=== PATIENT | male | born 1950 | race Caucasian/White ===

== ENCOUNTER → 2016-08-07 | Outpatient (CLI) | payer OTHER ==
[~2016-08-07] MED LIST: ACET500T76 PO; AMLO5TAB2 PO; ASPI-496 PO; ASPI-515 PO; ASPI325T4 PO; ATOR10TA PO; CHOL200024 PO; HYDR-882 PO; IBUP400T PO; LEVO25TA4 PO
== END | disposition home or self-care (01) ==
LOC: STAR 09:40
PROVIDERS: ATTEND Otolaryngology
DX: Z01.818 Encounter for other preprocedural examination (principal); J31.2 Chronic pharyngitis; C02.4 Malignant neoplasm of lingual tonsil
CPT/HCPCS: 93005

== ENCOUNTER 2016-08-14 09:30 | Day surgery (SDC) | payer OTHER ==
[~2016-08-14] VITALS: Ht 167.6 cm; Wt 105.5 kg
[~2016-08-14 09:30] MED LIST changes: +EPINEPHRINE TOPICAL SOLN 1 MG/ML, 30ML ONE; +FLUORESCEIN OPHTHALMIC 1 MG STRIP ONE; +OXYMETAZOLINE NASAL SPRAY 0.05%, 15ML ONE
[2016-08-14 10:06] VITALS: BP 136/74
[2016-08-14] MEDS ORDERED: FENTANYL PF 100 MCG/2ML ONE ×2 (10:48→11:55)
[2016-08-14] MEDS ORDERED: BALANCED SALT OPHTH IRRIG SOLN 18ML ONE (10:52)
[2016-08-14] MEDS ORDERED: OXYcodone 5 MG/5 ML ORAL.SOL UDC ONE (11:56)
[2016-08-14] MEDS ORDERED: OXYcodone 5 MG/5 ML ORAL.SOL UDC PO PRN (12:00)
[2016-08-14] MEDS ORDERED: ONDANSETRON 2MG/ML, 2ML IVPush PRN (12:00)
[2016-08-14] MEDS ORDERED: MEPERIDINE/PF 25MG/0.5ML IVPush PRN (12:00)
[2016-08-14] MEDS ORDERED: hydrALAzine 20 MG/ML, 1ML IV PRN (12:00)
[2016-08-14] MEDS ORDERED: MIDAZOLAM 1 MG/ML, 2ML IV PRN (12:00)
[2016-08-14] MEDS ORDERED: LABETALOL 5MG/ML, 20ML IV PRN (12:00)
[2016-08-14] MEDS: FENTANYL PF 100 MCG/2ML IV PRN ×2 (12:00→12:15)
[2016-08-14] MEDS ORDERED: HYDROmorphone 1 MG/ML, 1ML IV PRN (12:00)
[2016-08-14] MEDS ORDERED: ONDANSETRON 2MG/ML, 2ML ONE (16:04)
[2016-08-14] MEDS ORDERED: ROCURONIUM 10 MG/ML ONE (16:04)
[2016-08-14] MEDS ORDERED: NEOSTIGMINE 1 MG/ML, 10ML ONE (16:04)
[2016-08-14] MEDS ORDERED: DEXAMETHASONE 4 MG/ML, 1ML ONE (16:04)
[2016-08-14] MEDS ORDERED: PROPOFOL 10 MG/ML, 20ML ONE (16:04)
[2016-08-14] MEDS ORDERED: GLYCOPYRROLATE 0.2MG/1ML ONE (16:04)
[2016-08-14] MEDS ORDERED: CEFAZOLIN 1,000 MG ONE (16:04)
[2016-08-14] MEDS ORDERED: SUCCINYLCHOLINE 20 MG/ML, 10ML ONE (16:04)
== END 2016-08-14 13:30 | disposition home or self-care (01) ==
LOC: OUT 09:30
PROVIDERS: ATTEND Otolaryngology
DX: K14.8 Other diseases of tongue (principal); Z85.828 Personal history of other malignant neoplasm of skin; E03.9 Hypothyroidism, unspecified
CPT/HCPCS: 31535; 88305; J0330; J0690; J1100; J2405; J2704; J2710; J3010; J3490